=== PATIENT | male | born 1950 | race Caucasian/White ===

== ENCOUNTER 2016-02-29 11:30 | Inpatient (IN) | payer BC, MEDICARE ==
--- NOTE | 2016-05-03 14:26 | HP ---
CC: Chu Soto MD, at [facility]; Dr. Peter Giraldo; Dr. Derek Pepper. PREOPERATIVE HISTORY AND PHYSICAL: DATE OF ADMISSION AND SURGERY: This patient is scheduled for AA admission by Dr. Soto on Saturday , 05/16/16. DATE OF VISIT: 05/01/16. ATTENDING SURGEON: Dr. Chu Soto, (dictated by Samantha Nugent NP). CHIEF COMPLAINT: Colon polyp. HISTORY OF PRESENT ILLNESS: The patient is a 66-year-old male known to Dr. Soto from [facility]. The patient presented to [facility] on 03/01/16 for discussion rega rding a planned surgery for a new diagnosis of colon polyp. The patient underwent a routine colonos copy in January by Dr. Prakash and the patient was noted to have a large hepatic flexure polyp. Thi s was biopsied and was consistent with a tubulovillous adenoma; it was tattooed during endoscopy. T he patient also had another polyp that was completely removed at 30 cm in the anal verge consistent with adenoma. The patient denies any change in bowel habits or bleeding per rectum or chronic const ipation or abdominal pain. He has a family history of colon cancer, his father was diagnosed in 2015 and underwent colon resection and was diagnosed with metastatic colon cancer and is currently at [facility] with hospice in [place]. Dr. Soto examined the patient and reviewed the diagnostic findings and discussed the recommendation with the patient for laparoscopic partial colectomy; Dr. Soto outl ined the details of the procedure and went over the relevant risks, benefits and alternatives; today I reviewed the typical hospitalization and postoperative recovery; the patient was instructed in a bowel cleansing prep consisting of Colyte, clear liquids, Flagyl, and neomycin to be taken on the da y before surgery. He will be bridged to Lovenox in the perioperative period. The patient has had a chance to ask questions and stated that he understands the information and is satisfied with the an swers given to his questions. He will sign surgical consent on the day of surgery. PAST MEDICAL HISTORY: Significant for polycythemia vera with hypercoagulable state diagnosed May 2015; he is followed by Dr. Giraldo and requires therapeutic phlebotomy; the hemoglobin threshold is 1 5; the last therapeutic phlebotomy with a hemoglobin of 15.8 was on 04/26/16; his hemoglobin on 04/05 10/18 on preadmission testing was 14.7; history of cerebellar CVA April 2015 and an admission to [facility] with symptoms of vertigo and numbness in the left side of his face associated w ith facial droop; MRA of the head was suggestive of occlusion versus high-grade stenosis of the dist al left vertebral artery; he was followed by Dr. Wong from Neurology in [place], and his last visit there was October 2015 and has a followup in June 2016. 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 PAST SURGICAL HISTORY: Open reduction and internal fixation, left ankle; subsequent left ankle hard chery removal by Dr. Snider in 2014. Interventional Radiology balloon angioplasty left tibioperoneal trunk, November 2015; hernia repair and tonsillectomy many years ago. MEDICATIONS: Cymbalta 60 mg one and a half tablets p.o. daily, clopidogrel 75 mg 1 tablet p.o. huang y and the patient will hold this for 5 days preoperatively with the last dose on 05/10/16; warfarin 5 mg alternating with 2.5 mg p.o. as directed and he will take his last dose 05/10/16 and start a Lo venox bridge 05/12/16; pentoxifylline ER 400 mg b.i.d.; atorvastatin 40 mg p.o. daily; aspirin 325 m g p.o. daily and he will hold that for 5 days preoperatively with the last dose 05/10/16; hydroxyure a 500 mg p.o. daily; lisinopril 5 mg p.o. daily; zinc supplement 50 mg daily; probiotic daily; vitam in B-complex daily; vitamin B12 daily; horse chestnut extract daily; alpha-lipoic acid 300 mg b.i.d. ; calcium and magnesium supplement daily; vitamin D3 supplement daily. ALLERGIES: BACTRIM caused rash, BEE STINGS caused anaphylaxis, and Crest Ultra White toothpaste cau sed swelling of the tongue. REVIEW OF SYSTEMS: He denies any recent constitutional symptoms, he had a good appetite and his nancy ght is stable. Cardiovascular: Denies chest pain or palpitations, denies easy bruising or bleeding ; he has a diagnosis of polycythemia vera with hypercoagulable state as described in past medical hi story. Respiratory: Denies cough or shortness of breath. He has sleep apnea and will bring CPAP to the hospital. GI: No nausea, vomiting, diarrhea, or constipation. No change in bowel habits. No rectal bleeding. : No dysuria. Musculoskeletal: No joint pain or change in range of motion. H e denies any previous anesthesia complications. He denies any unusual bleeding or blood transfusion s. He does undergo therapeutic phlebotomy for polycythemia vera when his hemoglobin is greater than 15. He does have a history of deep vein thrombosis. Neurologic: Denies any deficits, status post CVA. 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 He is a nonsm oker. He occasionally drinks alcohol and denies use of other substances. FAMILY HISTORY: Positive for metastatic colon cancer in his father who was diagnosed in August 2015 a nd is currently under the care of hospice at his home in [place]; mother with a history of lung cancer and brain cancer; the patient's sister has a history of breast cancer. No known anes thesia complications or bleeding tendencies in the family. The patient's father may have had a deep vein thrombosis. PHYSICAL EXAMINATION GENERAL SURVEY: The patient is a 66-year-old male, well-developed, well-nourished, in no acute dist ress. VITAL SIGNS: Height 77 inches, weight 244 pounds, body mass index 28.9, blood pressure 124/82, puls e 66 and regular, respiratory rate 18, temperature 97.4 tympanic. SKIN: Warm, dry, intact. HEENT: Benign. NECK: Supple. No cervical lymphadenopathy. No carotid bruits. BACK: No CVA tenderness. LUNGS: Breath sounds bilaterally clear and equal. HEART: Regular rate and rhythm. No murmurs or rubs appreciated. ABDOMEN: Active bowel sounds, soft and nondistended, and nontender throughout. No obvious masses, organomegaly or evidence of ventral hernia. GENITALIA AND RECTAL EXAM: Deferred. EXTREMITIES: Warm without edema or skin ulcerations. NEUROLOGIC: Alert and oriented, speech is clear, 5/5 motor strength upper and lower extremities, st [place] gait. IMPRESSION: Colon polyp. PLAN: AA admission to Dr. Soto's service on Saturday05/16/16 for laparoscopic partial colectomy; the patient will take a bowel cleansing prep one day before surgery consisting of Colyte, clear liq uids, Flagyl and neomycin; the patient will take his last dose of warfarin, 05/10/16, and be bridged to Lovenox starting 05/12/16. KUN NUGENT, UTILITIES EQUIPMENT REPAIRER [id number]/[facility] #: [id number]
[2016-05-16] MEDS ORDERED: Buffered Lidocaine 1% SYR 3ML* 3 ML/SYR SYRINGE INTRADERM ONE (06:00)
[2016-05-16] MEDS ORDERED: Ertapenem* 1 GM in NS 0.9% 50 ML* 50 ML IVPB ONE (09:00)
[2016-05-16] MEDS ORDERED: Bupivacaine 0.25% EPI 200,000* 30 ML SDV ONE (09:36)
[2016-05-16] MEDS ORDERED: fentaNYL* 50 MCG/ML 2 ML VIAL (100 MCG VIAL) ONE ×4 (09:45→14:14)
[2016-05-16] MEDS ORDERED: Famotidine IV* 10 MG/ML 2 ML (20 mg) ONE (09:45)
[2016-05-16] MEDS ORDERED: Midazolam* 1 MG/ML 2 ML VIAL (2 MG) ONE (09:45)
[2016-05-16] MEDS ORDERED: Cisatracurium* 2 MG/ML MDV 10 ML ONE (10:25)
[2016-05-16] MEDS ORDERED: Desflurane* 240 ML INH ONE (10:59)
[2016-05-16] MEDS ORDERED: Propofol* 10 MG/ML 20 ML BTL IV PUSH ONE (11:12)
[2016-05-16] MEDS ORDERED: Lidocaine 2% PF * 5 ML VIAL ONE (11:12)
[2016-05-16] MEDS ORDERED: Dexamethasone IV* 4 MG/ML 1 ML (4 MG) ONE (11:12)
[2016-05-16] MEDS ORDERED: Ondansetron INJ* 2 MG/ML VIAL ONE (11:12)
[2016-05-16] MEDS ORDERED: Succinylcholine* 20 MG/ML 10 ML VIAL ONE (11:12)
[2016-05-16] MEDS ORDERED: DiMENhydriNATE IV* 50 MG/ML VIAL IV PUSH PRN (11:32)
[2016-05-16] MEDS ORDERED: Scopolamine 1.5 mg* PATCH TRANSDERM PRN (11:32)
[2016-05-16] MEDS ORDERED: Ondansetron INJ* 2 MG/ML VIAL IV PRN (11:32)
[2016-05-16] MEDS ORDERED: PROCHLORPERAZINE INJ 5 MG/ML 2 ML VIAL IV PRN (11:32)
[2016-05-16] MEDS ORDERED: HYDROmorphone INJ* 1 MG/ML CARPUJECT SYRINGE IV PRN (11:32)
[2016-05-16] MEDS ORDERED: HYDROmorphone INJ* 1 MG/ML CARPUJECT SYRINGE ONE ×2 (12:42→15:38)
[2016-05-16] MEDS ORDERED: Metoprolol Tartrate IV* 1 MG/ML 5 ML VIAL ONE (12:43)
[2016-05-16] MEDS ORDERED: Bupivacaine 0.25% W/EPI* 50 ML VIAL ONE (13:28)
--- NOTE | 2016-05-16 14:11 | RAD ---
Indication: Lost suture. Single view of the abdomen demonstrates surgical clips in the midline, right lateral abdomen, left lower quadrant and midline. No other radiopaque foreign body is noted. Nasogastric tube is in the distal esophagus. IMPRESSION: Surgical clips are noted. Nasogastric tube is in place.
[2016-05-16] MEDS ORDERED: Acetaminophen TAB* 325 MG PO PRN (14:12)
[2016-05-16] MEDS: fentaNYL* 50 MCG/ML 2 ML VIAL (100 MCG VIAL) IV PRN ×4 (14:14→15:03)
[2016-05-16] MEDS ORDERED: Morphine PCA ADULT* 5 MG/ML 30 ML ONE (14:33)
--- NOTE | 2016-05-16 14:36 | SURGPN ---
Brief Operative Note - Surgery Procedures: Pre-op: Right colon mass, skin lesion RUQ abdominal wall Post-op: Same Procedure: Laparoscopic assisted R colectomy with primary anastomosis. Excision of skin lesion, abdominal wall. Surgeon: Assistance: Berlin Ayala Anaesthesia: RODRICK Anesthesiologist: EBL: 100cc IVF: LR 2000cc Catheter: Christiansen to gravity Specimen: Portion of right colon, skin lesion RUQ abdominal wall
[2016-05-16] MEDS ORDERED: Morphine PCA ADULT* 5 MG/ML 30 ML PCA SCH (15:00)
[2016-05-16] MEDS ORDERED: Metoprolol Tartrate IV* 1 MG/ML 5 ML VIAL IV PRN (16:27)
[2016-05-16] MEDS: Metoprolol Tartrate IV* 1 MG/ML 5 ML VIAL IV SCH (21:23)
[2016-05-17] MEDS: Ondansetron INJ* 2 MG/ML VIAL IV PRN (00:16)
[2016-05-17] MEDS: Metoprolol Tartrate IV* 1 MG/ML 5 ML VIAL IV SCH ×4 (01:03→19:31)
[2016-05-17 07:05] LABS: Comments Flag Yes; Hematocrit 44 % (42-52); Hemoglobin 13.8 g/dl (14.0-18.0); Mean Corpuscular HGB Conc 31 g/dl (31-36); Mean Corpuscular Hemoglobin 24 pg (27-31); Mean Corpuscular Volume 78 fL (80-94); Mean Platelet Volume 9 um3 (7.4-10.4); Red Blood Count 5.67 10^6/ul (4.0-5.4); Red Cell Distribution Width 17 % (10.5-15); White Blood Count 17.2 10^3/ul (3.5-10.8)
--- NOTE | 2016-05-17 07:08 | OP ---
DATE OF OPERATION: 05/16/16 - ROOM #339 DATE OF : 52 SURGEON: Chu Soto MD ASSISTANTS: 1. Dr. Ronald Galvan. 2. KIMBRELY Koch ANESTHESIOLOGIST: Dr. Tamez. ANESTHESIA: General anesthesia. PRE-OP DIAGNOSES: Tubulovillous polyp of the hepatic flexure colon and a right abdominal wall skin lesion. POST-OP DIAGNOSIS: Tubulovillous polyp of the hepatic flexure colon and a right abdominal wall skin lesion. OPERATIVE PROCEDURES: 1. Laparoscopic assisted right hemicolectomy with primary anastomosis. 2. Excision of skin lesion. ESTIMATED BLOOD LOSS: Less than 100 cc. FLUIDS: Crystalloid fluid given 1800 cc. DRAINS: None. Christiansen catheter inserted, however, and approximately 150 cc out. SPECIMEN: 1. Right colon. 2. Skin lesion with suture marking 12 o'clock. DISPOSITION: The patient tolerated the procedure well. COUNTS: Lap pad count and instrument count was correct at the end of the procedure. There was a miscount of the needles. It was appropriate on the documentation, but open packages did not correlate with needle count. X-ray post-operatively showed no foreign bodies. DESCRIPTION OF PROCEDURE: The patient was identified in the preoperative area. Case discussed with him and his again, went over the risks, benefits and alternatives and he agreed. Consent was signed. He was marked and brought to the operating room, placed on the operating table in supine position. Preoperative antibiotics were given. Sequential devices were placed on bilateral lower extremities. General anesthesia was induced and a Christiansen catheter was inserted. The patient's abdominal hair was clipped and the abdomen was prepped and draped in a standard surgical fashion and a time-out was performed. The folds of the umbilicus were elevated anteriorly and a Veress needle was inserted to the abdominal cavity, which was then allowed to insufflate to a pressure of 15 mmHg. The patient tolerated the insufflation well. A supraumbilical incision was made and a 12 mm trocar was inserted through this. A laparoscope was inserted through this and there was no evidence of injury from the trocar insertion or from the Veress needle. Additional trocars were then placed in the following positions; a 5 mm in the suprapubic area and a 5 mm in the left lower quadrant. Attention was then turned towards the colon. The appendix was identified and it was within normal limits. Cecum was identified and no blue dye was appreciated. Transverse colon was also identified with no blue dye. Additional 5 mm trocars were then placed in the left upper quadrant and we proceeded to take down the lateral attachments. The small bowel was retracted superiorly and medially, and with electrocautery, we were able to free up the side wall attachments. We extended this to the white line of Toldt, which was taken with cautery right up to the area of the hepatic flexure. Additional attachments were taken with the LigaSure device to mobilize the colon medially. Still no blue dye had been appreciated throughout the full ascending colon. Next, the omentum was reflected cephalad. It was attached to the ascending colon. This was taken down with electro-cautery and this allowed us to better see the proximal transverse colon. A blue dye was appreciated at this point and we continued on. With the omentum lifted up off of the ascending colon, we were able to get into the appropriate plane to take the hepatic flexure in its entirety and bring the transverse colon inferiorly, taking care to protect the duodenum. The duodenum was preserved and was not injured as was the right ureter. With this mobilization done, we then next put the patient back to a neutral position. A 12 mm trocar was removed and an upper midline incision was made. This was deepened down through all the layers of the abdominal wall and entry into the abdominal cavity was then made. The hepatic flexure along with the proximal transverse colon and cecum were then brought out through this incision. Next, the portion of blue dye along the proximal transverse colon was appreciated. We placed stay sutures along the colon just on either side of the tinea. We incised along the colon and we were right over the area of the polyp. Polyp appeared approximately 2.5 cm. It was flat and took up the portion of the wall of the colon up against the mesenteric edge. For this reason, we determined to perform a formal right hemicolectomy. The opening of the colon was then sutured with a running silk suture. There was no spillage. The point was chosen on the transverse colon noted to have good blood supply. Window was made around this colon and the mesentery to this was taken with the LigaSure device. Larger vessels were clamped and suture ligated with 2-0 Polysorb suture. We again protected duodenum throughout this portion of the case and we were able to take most of the right mesocolon. The mesentery was taken right up to the small bowel approximately 5 cm of distal ileum was taken in our specimen. Once the mesentery taken, we brought the small bowel in apposition to the transverse colon. These lay without tension. With the bowel clamped, enterotomy and colotomy were made and an 80 mm WADE stapler was fired across this to create the anastomosis. The common defect was reapproximated with a TA 90, taking the specimen off as well. This was passed off and the suture line was reviewed. It showed no gaps. There was some oozing. These were controlled with 3-0 silk sutures. The corners were dunked with 3-0 silk sutures as well as the crossing staple line area. The crotch of the staple line was also bolstered with a 3-0 silk suture, and the mesenteric defect was reapproximated from the medial aspect with running 2-0 Polysorb suture. We irrigated the working area as well as the right paracolic gutter. There was no active bleeding. The colon was dropped back into the abdomen. Review of the omentum showed a small tongue of omentum that was somewhat compromised from the dissection. For this reason, this was removed but still leaving a fair amount of omentum which was then draped over the midline incision which was reapproximated with #1 Polysorb sutures in a [id number] fashion. Wound was then irrigated and the skin edges reapproximated with skin stephanie as were the laparoscopic sites. Attention was then turned towards the abdominal skin lesion. This was approximately 8 x 8 mm in size. We made an elliptical incision and removed it in its entirety. Hemostasis was then achieved and the edges were brought together with skin gun. Sterile dressing was applied. The patient tolerated the procedure well, was awoken up in the OR, and transferred to the PACU in stable condition. CC: Dr. Peter Giraldo; Dr. Derek Pepper; [facility].* [id number]/[facility] #: [id number] MTDD
[2016-05-17 07:34] LABS: ALT 87 U/L (7-52); AST 58 U/L (13-39); Albumin 3.8 g/dL (3.2-5.2); Alkaline Phosphatase 46 U/L (34-104); Anion Gap 8 mmol/L (2-11); BUN/Creatinine Ratio 15.5 (8-20); Blood Urea Nitrogen 16 mg/dL (6-24); CO2 Carbon Dioxide 26 mmol/L (22-32); Calcium 8.8 mg/dL (8.6-10.3); Chloride 103 mmol/L (101-111); EGFR African American 93.2 (>60); EGFR Non-African American 72.5 (>60); Globulin 2.5 g/dL (2-4); Glucose 97 mg/dL (70-100); Lipase < 10 U/L (11.0-82.0); Magnesium 1.8 mg/dL (1.9-2.7); Potassium 4.4 mmol/L (3.5-5.0); Sodium 137 mmol/L (133-145); Total Protein 6.3 g/dL (6.4-8.9)
[2016-05-17] MEDS: Lisinopril TAB* 5 MG PO SCH (09:00)
[2016-05-17] MEDS: DULoxetine DR CAP* 30 MG CAP.DR PO SCH (09:00)
[2016-05-17] MEDS ORDERED: Magnesium Sulfate 1 GM IV* 1 GM/100 ML BAG IV ONE (10:30)
--- NOTE | 2016-05-17 10:57 | SURGPN ---
Subjective - Introduction -: Doing well, some nausea last night relieved with Zofran, but no vomiting. 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 No fever or chills. No flatus. - Medications -: Active Medications Generic Name Dose Route Start Last Admin Trade Name Freq PRN Reason Stop Dose Admin Acetaminophen 650 mg 05/16/16 14:12 Tylenol Tab* PO Q4H PRN Pain Or Temperature >101 F Duloxetine HCl 90 mg 05/17/16 09:00 05/17/16 09:00 Cymbalta Cap* PO 90 mg DAILY ALICIA Administration Enoxaparin Sodium 113 mg 05/17/16 18:00 Lovenox(*) SUBCUT Q12H ALICIA Lactated Ringer's 1,000 mls @ 125 mls/hr 05/16/16 15:00 05/17/16 06:10 Lactated Ringers 1000 Ml Bag* IV 125 mls/hr PER RATE ALICIA Administration Morphine Sulfate 30 mls @ 0 mls/hr 05/16/16 15:00 05/16/16 14:36 Morphine Skein Bleacher Adult* 5 Mg/Ml SHELL ASSEMBLER 1 mls/hr .change Q24H ALICIA Administration Protocol Per Protocol Magnesium Sulfate/Dextrose 1 gm in 100 mls @ 200 mls/hr 05/17/16 10:30 10:49 Magnesium Sulfate 1 Gm Iv* IV 05/17/16 10:59 200 mls/hr ONCE ONE Administration Lisinopril 5 mg 05/17/16 09:00 05/17/16 09:00 Prinivil Tab* PO 5 mg DAILY ALICIA Administration Metoprolol Tartrate 5 mg 05/16/16 19:00 05/17/16 06:10 Lopressor Iv* IV 5 mg Q6H ALICIA Administration Ondansetron HCl 4 mg 05/16/16 14:12 05/17/16 00:16 Zofran Inj* IV 4 mg Q4H PRN Administration NAUSEA/VOMITING Pharmacy Profile Note 1 note 05/19/16 11:34 Scopolomine Patch Remove* PATCH OFF 05/19/16 11:35 Q72H ONE Objective - Objective -: Awake and alert. Ambulated down olvera earlier, now laying on bed. Appears comfortable, and in NAD. - Intake and Output -: Intake & Output 05/15/16 05/16/16 05/17/16 03/17/17 06:59 06:59 06:59 06:59 Intake Total 3814 Output Total 2500 845 Balance 1314 -845 Weight 249 lb 9.6 oz Intake: IV Fluids 3814 LR 3814 Oral 0 Output: Car 2400 845 Estimated Blood Loss 100 Surgical Physical Exam - Comments -: Vitals: reviewed, afebrile. Lungs: CTA bilaterally. Abdomen: soft, non-tender and non-distended. Incisions clean, dry and intact. No guarding or rigidity. Ext.: No edema, car removed earlier this AM. Assessment and Plan - Assessment -: A 66 y/o gentleman, s/p laparoscopic assisted right colectomy, doing well. - Plan Surgical Plan of Care: Increase Activity, Discontinue Car Additional Comments: Will start sips of clear liquids today. Car already d/c'ed this AM. Continue to ambulate as tolerated. Hypomagnesemia, replace Mg one gram IV run per protocol today. Await bowel functions. Check labs tomorrow AM.
[2016-05-17] MEDS ORDERED: Enoxaparin(*) 40 MG/0.4 ML SYR SUBCUT SCH (18:00)
[2016-05-17] MEDS: Enoxaparin(*) 150 MG/ML 1 ML SYRINGE SUBCUT SCH (18:00)
[2016-05-18] MEDS: Metoprolol Tartrate IV* 1 MG/ML 5 ML VIAL IV SCH ×4 (01:50→19:43)
[2016-05-18] MEDS: Enoxaparin(*) 150 MG/ML 1 ML SYRINGE SUBCUT SCH ×2 (06:30→17:33)
[2016-05-18 08:37] LABS: BUN/Creatinine Ratio 10.1 (8-20); Calcium 8.8 mg/dL (8.6-10.3); EGFR African American 78.9 (>60); EGFR Non-African American 61.4 (>60); Magnesium 1.9 mg/dL (1.9-2.7); Potassium 3.9 mmol/L (3.5-5.0)
[2016-05-18] MEDS: Lisinopril TAB* 5 MG PO SCH (09:26)
[2016-05-18] MEDS: DULoxetine DR CAP* 30 MG CAP.DR PO SCH (09:26)
[2016-05-18 09:29] LABS: Hematocrit 44 % (42-52); Hemoglobin 13.4 g/dl (14.0-18.0); Mean Corpuscular HGB Conc 30 g/dl (31-36); Mean Corpuscular Hemoglobin 24 pg (27-31); Mean Corpuscular Volume 79 fL (80-94); Mean Platelet Volume 9 um3 (7.4-10.4); Red Blood Count 5.58 10^6/ul (4.0-5.4); Red Cell Distribution Width 17 % (10.5-15); White Blood Count 11.9 10^3/ul (3.5-10.8)
[2016-05-18 09:32] LABS: Comments Flag Yes
--- NOTE | 2016-05-18 10:32 | SURGPN ---
Subjective - Introduction -: Reports doing well, minimal pain, only with movement. Ambulatory, no flatus yet. Tolerating liquid diet, no N/V, fever or chills. - Medications -: Active Medications Generic Name Dose Route Start Last Admin Trade Name Freq PRN Reason Stop Dose Admin Acetaminophen 650 mg 05/16/16 14:12 Tylenol Tab* PO Q4H PRN Pain Or Temperature >101 F Duloxetine HCl 90 mg 05/17/16 09:00 05/18/16 09:26 Cymbalta Cap* PO 90 mg DAILY ALICIA Administration Enoxaparin Sodium 113 mg 05/17/16 18:00 05/18/16 06:30 Lovenox(*) SUBCUT 113 mg Q12H ALICIA Administration Lactated Ringer's 1,000 mls @ 125 mls/hr 05/16/16 15:00 05/18/16 05:42 Lactated Ringers 1000 Ml Bag* IV 125 mls/hr PER RATE ALICIA Administration Morphine Sulfate 30 mls @ 0 mls/hr 05/16/16 15:00 05/16/16 14:36 Morphine Clock Assembler Adult* 5 Mg/Ml SPACE PHYSICIST 1 mls/hr .change Q24H ALICIA Administration Protocol Per Protocol Lisinopril 5 mg 05/17/16 09:00 05/18/16 09:26 Prinivil Tab* PO 5 mg DAILY ALICIA Administration Metoprolol Tartrate 5 mg 05/16/16 19:00 05/18/16 06:30 Lopressor Iv* IV 5 mg Q6H ALICIA Administration Ondansetron HCl 4 mg 05/16/16 14:12 05/17/16 00:16 Zofran Inj* IV 4 mg Q4H PRN Administration NAUSEA/VOMITING Oxycodone/Acetaminophen 2 tab 05/18/16 10:26 Percocet 5/325 Tab* PO Q4H PRN PAIN Pharmacy Profile Note 1 note 05/19/16 11:34 Scopolomine Patch Remove* PATCH OFF 05/19/16 11:35 Q72H ONE Objective - Objective -: Awake and alert, comfortable on his chair, in NAD. - Intake and Output -: Intake & Output 05/16/16 05/17/16 05/18/16 05/19/16 06:59 06:59 06:59 06:59 Intake Total 3814 4916 Output Total 2500 3595 420 Balance 1314 1321 -420 Weight 249 lb 9.6 oz Intake: IV Fluids 3814 2886 LR 3814 2886 Medicated IV 100 Magnesium 100 Oral 0 1930 Output: Urine 2750 420 Christiansen 2400 845 Estimated Blood Loss 100 Surgical Physical Exam - Comments -: Vitals reviewed, afebrile. Abdomen soft, non-tender and non-distended. Incisions clean, dry and intact. Dressing removed. Assessment and Plan - Assessment -: A 66 y/o male, POD#2, s/p right colectomy, doing well. - Plan Surgical Plan of Care: Increase Activity Additional Comments: Increased activity, await bowel function. Start PO pain meds, d/c SPACE PHYSICIST possibly tomorrow. Hypomagnesemia, replaced and corrected.
[2016-05-18] MEDS: oxyCODONE/Acetamin 5/325 MG* TAB PO PRN ×3 (13:32→22:09)
--- NOTE | 2016-05-18 16:24 | PN ---
Progress Note - Progress Note Note: Surgery Progress: Per discharge planning, patient will require a hospital bed for his short-term recovery, related to his recent Right colectomy, and for the purpose of repositioning in a way that cannot be done with his usual bed.
[2016-05-18] MEDS: D5W 1/2 NS KCl 20 Meq 1000 ML* 1,000 ML IV SCH (22:02)
[2016-05-19] MEDS: Metoprolol Tartrate IV* 1 MG/ML 5 ML VIAL IV SCH ×4 (01:12→19:57)
[2016-05-19] MEDS: oxyCODONE/Acetamin 5/325 MG* TAB PO PRN ×4 (03:56→19:55)
[2016-05-19] MEDS: Ondansetron INJ* 2 MG/ML VIAL IV PRN (06:30)
[2016-05-19] MEDS: Enoxaparin(*) 150 MG/ML 1 ML SYRINGE SUBCUT SCH ×2 (06:39→17:57)
[2016-05-19] MEDS: D5W 1/2 NS KCl 20 Meq 1000 ML* 1,000 ML IV SCH ×2 (08:19→18:01)
[2016-05-19] MEDS: DULoxetine DR CAP* 30 MG CAP.DR PO SCH (09:07)
[2016-05-19] MEDS: Lisinopril TAB* 5 MG PO SCH (09:07)
[2016-05-19] MEDS ORDERED: Scopolamine PATCH Remove* 1 NOTE MISC PATCH OFF ONE (11:34)
[2016-05-19] MEDS ORDERED: Morphine INJ* 2 MG/ML 1 ML CARPUJECT IV PRN (11:44)
--- NOTE | 2016-05-19 12:02 | PN ---
Progress Note - Progress Note SOAP: Subjective: pt seen and examined. positive hiccups, nausea earlier today. minimal flatus. 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 no coumadin yet possible NGT if hiccups continue
[2016-05-20] MEDS: Metoprolol Tartrate IV* 1 MG/ML 5 ML VIAL IV SCH ×4 (01:07→19:41)
[2016-05-20] MEDS: D5W 1/2 NS KCl 20 Meq 1000 ML* 1,000 ML IV SCH (04:03)
[2016-05-20] MEDS: Enoxaparin(*) 150 MG/ML 1 ML SYRINGE SUBCUT SCH ×2 (05:40→17:13)
[2016-05-20] MEDS: oxyCODONE/Acetamin 5/325 MG* TAB PO PRN (05:42)
[2016-05-20] MEDS: Lisinopril TAB* 5 MG PO SCH (09:07)
[2016-05-20] MEDS: DULoxetine DR CAP* 30 MG CAP.DR PO SCH (09:07)
--- NOTE | 2016-05-20 11:34 | PN ---
Progress Note - Progress Note SOAP: Subjective: pt seen and examined. hiccups resolved, no nausea. minimal flatus. no BM. Overall feeling better Objective: a and o x 3; lungs: clear abdo: soft, mild distension, nontender hypoactive BS no calf tenderness path P Assessment: POD4 lap assisted R hemicolectomy, ileus resolving Plan: OOB IVL, advance diet Gi dvt proph lovenox and coumadin tonight likely d/c tomorrow
[2016-05-20] MEDS ORDERED: Warfarin TAB(*) 5 MG PO SCH (17:00)
[2016-05-21] MEDS: Metoprolol Tartrate IV* 1 MG/ML 5 ML VIAL IV SCH ×2 (03:09→08:02)
[2016-05-21] MEDS: Enoxaparin(*) 150 MG/ML 1 ML SYRINGE SUBCUT SCH (06:07)
[2016-05-21 07:44] VITALS: BP 150/69
--- NOTE | 2016-05-21 09:25 | SURGPN ---
Subjective - Introduction -: Reports doing well. Tolerating low residue diet, passing flatus, no BM yet. Ambulatory and ready to go home. - Medications -: Active Medications Generic Name Dose Route Start Last Admin Trade Name Freq PRN Reason Stop Dose Admin Acetaminophen 650 mg 05/16/16 14:12 Tylenol Tab* PO Q4H PRN Pain Or Temperature >101 F Duloxetine HCl 90 mg 05/17/16 09:00 05/20/16 09:07 Cymbalta Cap* PO 90 mg DAILY ALICIA Administration Enoxaparin Sodium 113 mg 05/17/16 18:00 05/21/16 06:07 Lovenox(*) SUBCUT 113 mg Q12H ALICIA Administration Lisinopril 5 mg 05/17/16 09:00 05/20/16 09:07 Prinivil Tab* PO 5 mg DAILY ALICIA Administration Metoprolol Tartrate 5 mg 05/16/16 19:00 05/21/16 08:02 Lopressor Iv* IV 5 mg Q6H ALICIA Administration Morphine Sulfate 2 mg 05/19/16 11:44 Morphine Inj (Syringe)* IV Q4H PRN PAIN - MILD Ondansetron HCl 4 mg 05/16/16 14:12 05/19/16 06:30 Zofran Inj* IV 4 mg Q4H PRN Administration NAUSEA/VOMITING Oxycodone/Acetaminophen 2 tab 05/18/16 10:26 05/20/16 05:42 Percocet 5/325 Tab* PO 2 tab Q4H PRN Administration PAIN Warfarin Sodium 5 mg 05/20/16 17:00 05/20/16 17:13 Coumadin Tab(*) PO 5 mg DAILY@1700 ALICIA Administration Protocol Objective - Objective -: Awake and alert, eating breakfast, in NAD. - Intake and Output -: Intake & Output 05/19/16 05/20/16 05/21/16 05/22/16 06:59 06:59 06:59 06:59 Intake Total 9343 0313 2156 0 Output Total 1999 3726 4200 500 Balance 023 1080 -2 -500 Intake: IV Fluids 853 2088 0 D5W 1/2 NS 20 meq KCL 853 2088 0 IVPB 110 D5W 1/2 NS 20 meq KCL 110 Oral 1790 2725 2156 0 Output: Urine 1999 3725 4200 500 Other: Estimated Void Large # Voids 2 5 Surgical Physical Exam - Comments -: Vitals reviewed, afebrile. Abdomen soft, non-tender and non-distended. Incisions C/D/I Ext no edema Assessment and Plan - Assessment -: A 66 y/o POD#5, s/p right colectmy, doing well. - Plan Surgical Plan of Care: Discontinue IV, Discharge Additional Comments: Plan on discharge to home today. Continue Lovenox at home with Coumadin, next INR check on Saturday05/23/16, and F/U with surgical office on .
[2016-05-21] MEDS: Lisinopril TAB* 5 MG PO SCH (09:27)
[2016-05-21] MEDS: DULoxetine DR CAP* 30 MG CAP.DR PO SCH (09:27)
--- NOTE | 2016-05-22 05:28 | DS ---
CC: Dr. Pepper; Dr. Surendra Delaney DISCHARGE SUMMARY: DATE OF ADMISSION: 05/16/16 DATE OF DISCHARGE: 05/21/16 ADMISSION DIAGNOSIS: Large hepatic flexure polyp. DISCHARGE DIAGNOSIS: Large hepatic flexure polyp. ADMITTING PHYSICIAN: Dr. Soto. CONSULTATIONS: None. PROCEDURES: Laparoscopic-assisted right colectomy and skin lesion removal on 05/16/16. HISTORY OF PRESENT ILLNESS: Mr. Youssef is a pleasant 66-year-old gentleman, who presented at Dr. Luz Marina gallego's office after referral from Dr. Prakash. The patient had a colonoscopy routinely in January of last year and was found to have a large polyp of the hepatic flexure that was biopsied and was co nsistent with tubulovillous adenoma. A tattoo was placed during endoscopy and the patient was sent for Dr. Soot to discuss possible surgery. The patient was educated about surgery. The rationale, indications, risks, and benefits were discussed with him and he consented to go forth. HOSPITAL COURSE: The patient was admitted on the same day of surgery in anticipation for surgery. He was taken to the operating room on 05/16/16 where he underwent a laparoscopically-assisted right colectomy as well as removal of a small skin lesion in the right upper quadrant of the abdominal wal l. He did extremely well after surgery and he went to the surgical floor in a good condition. His pain was mostly under control using his [employer] as needed. He started on the next day on sips of clear liquid diet that he tolerated well and his diet was gradually advanced on the following days. He banks d laboratory workup during his stay that revealed leukocytosis with white count of 17,[address] day postop, but that value was resolved on the following day. He was ambulatory out of bed and h e continued to improve on a daily basis. Given his history of polycythemia, he was started on Loven ox 40 mg b.i.d. and was discharged home on Lovenox 120 mg b.i.d. as well as Coumadin to check his IN R in 3 days. The patient continued to improve. He tolerated his low-residue diet on discharge day. He will follow up with Dr. Soto next week to remove stephanie and also will follow up with Dr. Oriana lerma, his primary care physician, to check his INR on Saturday to adjust his Coumadin dose. DISCHARGE MEDICATIONS: Include: 1. Lovenox 120 mg subcu b.i.d. 2. Aspirin 325 once daily. 3. Lipitor 40 mg once daily. 4. Calcium supplement 1 tab daily. 5. B-complex vitamin 1 tab daily. 6. Cyanocobalamin 500 mcg p.o. daily. 7. Cymbalta 90 mg p.o. daily. 8. Lisinopril 5 mg p.o. daily. 9. Warfarin 2.5 mg p.o. daily alternating with 5 mg p.o. daily. 10. Zinc supplement 50 mg p.o. daily. 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 [facility] [id number]/[facility] #: [id number]
== END 2016-05-21 13:30 | disposition home or self-care (01) | DRG 330 ==
LOC: AA 05-16 08:46 → SSU 05-16 14:12
PROVIDERS: ADMIT Surgery; ATTEND Surgery
PROC: 0DTF0ZZ Resection of Right Large Intestine, Open Approach (ICD-10-PCS; 2016-05-16)
PROC: 0HB7XZZ Excision of Abdomen Skin, External Approach (ICD-10-PCS; 2016-05-16)
PROC: 0DJD4ZZ Inspection of Lower Intestinal Tract, Percutaneous Endoscopic Approach (ICD-10-PCS; 2016-05-16)
PROC: 0T9B70Z Drainage of Bladder with Drainage Device, Via Natural or Artificial Opening (ICD-10-PCS; principal; 2016-05-16 10:00)
DX: D12.3 Benign neoplasm of transverse colon (principal); D68.59 Other primary thrombophilia; D68.69 Other thrombophilia; K56.7 Ileus, unspecified; E83.42 Hypomagnesemia; D45 Polycythemia vera; I10 Essential (primary) hypertension; C44.519 Basal cell carcinoma of skin of other part of trunk; E78.5 Hyperlipidemia, unspecified; G47.30 Sleep apnea, unspecified; R11.0 Nausea; D72.829 Elevated white blood cell count, unspecified; R06.6 Hiccough; G47.33 Obstructive sleep apnea (adult) (pediatric); F41.9 Anxiety disorder, unspecified; F32.9 Major depressive disorder, single episode, unspecified; I73.9 Peripheral vascular disease, unspecified; L98.9 Disorder of the skin and subcutaneous tissue, unspecified; Z80.0 Family history of malignant neoplasm of digestive organs; Z86.73 Personal history of transient ischemic attack (TIA), and cerebral infarction without residual deficits; Z86.718 Personal history of other venous thrombosis and embolism; Z88.1 Allergy status to other antibiotic agents; Z91.030 Bee allergy status; Z91.048 Other nonmedicinal substance allergy status; Z72.89 Other problems related to lifestyle; Z80.1 Family history of malignant neoplasm of trachea, bronchus and lung; Z80.3 Family history of malignant neoplasm of breast; Z80.8 Family history of malignant neoplasm of other organs or systems; Z83.2 Family history of diseases of the blood and blood-forming organs and certain disorders involving the immune mechanism; Z86.14 Personal history of Methicillin resistant Staphylococcus aureus infection; Z53.31 Laparoscopic surgical procedure converted to open procedure; Z79.01 Long term (current) use of anticoagulants; Z79.82 Long term (current) use of aspirin
CPT/HCPCS: 36415; 74000; 80048; 80053; 83690; 83735; 84100; 85025; 85610; 86140; 87641; 88305; 88309; 94760; A9270-GY; C1776; J0330; J1100; J1170; J1335; J1650; J2250; J2270; J2405; J2704; J3010; J3475; J3490